=== PATIENT | female | born 1950 | race Two or more races ===

== ENCOUNTER 2017-01-03 19:24 | Emergency (ER) | payer MEDICARE ==
[~2017-01-03] VITALS: Ht 152.4 cm; Wt 68.0 kg
[2017-01-03 19:37] VITALS: BP 168/100
== END 2017-01-03 21:35 | disposition home or self-care (01) ==
LOC: ER 19:31
DX: S80.02XA Contusion of left knee, initial encounter (principal); S80.01XA Contusion of right knee, initial encounter; E11.9 Type 2 diabetes mellitus without complications; I10 Essential (primary) hypertension; Z88.8 Allergy status to other drugs, medicaments and biological substances; L03.115 Cellulitis of right lower limb; Z91.040 Latex allergy status; T24.202A Burn of second degree of unspecified site of left lower limb, except ankle and foot, initial encounter; W18.30XA Fall on same level, unspecified, initial encounter; Y93.89 Activity, other specified; Y92.89 Other specified places as the place of occurrence of the external cause; Y99.8 Other external cause status
CPT/HCPCS: 99283; A4606; Z7610